=== PATIENT | male | born 1995 | race Caucasian/White ===

== ENCOUNTER 2021-06-26 11:43 | Emergency (ER) | payer MEDICARE ==
[2021-06-26] MEDS ORDERED: TESSALON PERLE100 MG PO (13:29)
[2021-06-26] MEDS ORDERED: MEDROL 4MG DOSEP4 MG PO (13:29)
[2021-06-26] MEDS ORDERED: PROVENTIL HFA6.7 GM INH (13:29)
== END 2021-06-26 14:00 | disposition home or self-care (01) ==
LOC: FER 11:43
DX: U07.1 COVID-19 (principal)
CPT/HCPCS: 71046